=== PATIENT | female | born 2000 | race Caucasian/White ===

== ENCOUNTER 2022-01-07 11:40 | Emergency (ER) | payer OTHER ==
[2022-01-07 12:36] LABS: Urine Blood Trace-intact (Negative); Urine Glucose Negative (Negative); Urine Protein 1+ (Negative); Urine Specific Gravity >=1.030 (1.005-1.030)
[2022-01-07 12:37] LABS: Absolute Lymphocytes (CBC) 0.5 K/uL (0.7-4.9); Hematocrit 35.5 % (36.0-45.0); Lymphocytes % 6.4 % (15.3-44.8); MCV 72.2 fL (80-100); MPV 8.2 fL (7.6-11.3); RBC Red Blood Cell Count 4.91 M/uL (3.86-4.86)
[2022-01-07] MEDS ORDERED: NA CHLORIDE 0.9% 1,000 ML ONE (13:00)
[2022-01-07] MEDS ORDERED: ONDANSETRON 4 MG/2 ML VIAL ONE (13:00)
[2022-01-07 13:04] LABS: Albumin 3.8 g/dL (3.4-5.0); Bilirubin Total 0.9 mg/dL (0.2-1.0); Potassium 3.6 mmol/L (3.5-5.1)
--- NOTE | 2022-01-07 13:27 | RAD REPORT ---
EXAM DESCRIPTION: US - Abdomen Exam Limited - 01/07/2022 12:48 pm CLINICAL HISTORY: EPIGASTRIC PAIN COMPARISON: No comparisons FINDINGS: No gallstones, sludge or other abnormalities within the gallbladder lumen. There is no wal l thickening or pericholecystic fluid. No common duct stone or biliary tree dilatation identified. IMPRESSION: Normal gallbladder and biliary tree ultrasound.
[2022-01-07] MEDS ORDERED: METOCLOPRAMIDE 10 MG/2mL INJ ONE (14:54)
[2022-01-07] MEDS ORDERED: NA CHLORIDE 0.9% 250 ML ONE (14:54)
--- NOTE | 2022-01-07 15:44 | EDPHYS ---
Physician Documentation [facility] Name: Joanna Isbell Age: 21 yrs Sex: Female : 2000 Arrival Date: 01/07/2022 Time: 11:41 Bed DIS1 Private MD: ED Physician Oswald De Santiago HPI: 01/07 12:09 This 21 yrs old Female presents to ER via Unassigned with complaints of Headache, jmm Nausea/Vomiting, Fever. 12:09 The patient presents to the emergency department with nausea, vomiting, abdominal pain. jmm Onset: The symptoms/episode began/occurred acutely, last night. Possible causes: unknown. This is a 21-year-old female with no known chronic medical conditions of presents to the emergency department with complaints of nausea and vomiting beginning acutely last night. Patient states this occurred after she inhaled a chemical used for cleaning. Patient denies diarrhea but states having some intermittent abdominal pain. Also complains of chills and right upper back pain.. 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 - Social history:: Smoking status: Patient denies any tobacco usage or history of. Patient/guardian denies using alcohol. ROS: 12:09 Constitutional: Positive for body aches, chills. jmm 12:09 Abdomen/GI: Positive for abdominal pain. 12:09 Back: Positive for pain at rest. 12:09 All other systems are negative. Exam: 12:09 Constitutional: This is a well developed, well nourished patient who is awake, alert, jmm and in no acute distress. Head/Face: atraumatic. Eyes: EOMI, no conjunctival erythema appreciated ENT: Moist Mucus Membranes Neck: Trachea midline, Supple Chest/axilla: Normal chest wall appearance and motion. Cardiovascular: Regular rate and rhythm. No edema appreciated Respiratory: Normal respirations, no respiratory distress appreciated Abdomen/GI: Non distended Back: Normal ROM Skin: General appearance color normal MS/ Extremity: Moves all extremities, no obvious deformities appreciated, no edema noted to the lower extremities Neuro: Awake and alert Psych: Behavior is normal, Mood is normal, Patient is cooperative and pleasant Vital Signs: 12:18 BP 122 / 74; Pulse 101; Resp 18; Temp 98.4(TE); Pulse Ox 98% on R/A; Weight 72.57 kg; ld1 Height 5 ft. 4 in. (162.56 cm); Pain 0/10; 12:18 Body Mass Index 27.46 (72.57 kg, 162.56 cm) ld1 MDM: 12:08 Patient medically screened. [facility] 15:42 Data reviewed: vital signs, nurses notes. Counseling: I had a detailed discussion with [facility] the patient and/or guardian regarding: the historical points, exam findings, and any diagnostic results supporting the discharge/admit diagnosis, lab results, radiology results, the need for outpatient follow up, to return to the emergency department if symptoms worsen or persist or if there are any questions or concerns that arise at home. ED course: Labs and imaging studies are unremarkable. Patient states feeling much better after IV fluids. Patient was otherwise given strict return precautions. Patient understood and agrees plan of care.. 01/07 12:08 Order name: CBC with Diff; Complete Time: 12:44 [facility] 01/07 12:08 Order name: CMP; Complete Time: 13:14 [facility] 01/07 12:08 Order name: Lipase; Complete Time: 13:14 [facility] 01/07 12:09 Order name: SARS-COV-2 RT PCR (Document "Date of Onset" if Symptomatic); Complete Time: [facility] 13:31 01/07 12:09 Order name: Influenza Screen (a \\T\\ B); Complete Time: 13:00 [facility] 01/07 12:36 Order name: Urine Dipstick-Ancillary; Complete Time: 12:44 [facility] 01/07 12:08 Order name: IV Saline Lock; Complete Time: 12:23 [facility] 01/07 12:08 Order name: Labs collected and sent; Complete Time: 12:23 [facility] 01/07 12:25 Order name: US Abdomen Limited; Complete Time: 13:31 [facility] 01/07 12:08 Order name: Urine Dipstick-Ancillary (obtain specimen); Complete Time: 13:38 [facility] 01/07 12:08 Order name: Urine Test (obtain specimen); Complete Time: 13:38 jm Administered Medications: 12:58 Drug: NS 0.9% 1000 ml Route: IV; Rate: 1 bolus; Site: left forearm; iw 14:00 Follow up: IV Status: Completed infusion iw 12:58 Drug: Zofran (Ondansetron) 4 mg Route: IVP; Site: left forearm; iw 14:50 Drug: Reglan (metoCLOPramide) 10 mg Route: IVP; Site: left forearm; iw 15:30 Follow up: Response: No adverse reaction iw 14:50 Drug: NS 0.9% 250 ml Route: IV; Rate: bolus; Site: left forearm; iw 15:30 Follow up: IV Status: Completed infusion iw Disposition: 16:34 Co-signature as Attending Physician, Oswald De Santiago DO I was immediately available onsite ms3 in the emergency department for consultation in the care of the patient. Disposition Summary: 01/07/22 15:43 Discharge Ordered Location: Home [facility] Condition: Stable [facility] Diagnosis - Vomiting [facility] Followup: [facility] - With: Private Physician - When: 2 - 3 days - Reason: Recheck today's complaints, Continuance of care, Re-evaluation by your physician Discharge Instructions: - Discharge Summary Sheet [facility] - Vomiting, Adult [facility] Forms: - Medication Reconciliation Form [facility] - Thank You Letter [facility] - Antibiotic Education [facility] - Prescription Opioid Use [facility] - Family Work Release iw Prescriptions: - Pepcid 20 mg Oral Tablet - take 1 tablet by ORAL route every 12 hours for 10 days; 20 tablet; Refills: 0, [facility] Product Selection Permitted - promethazine 25 mg Oral Tablet - take 1 tablet by ORAL route every 6 hours As needed; 30 tablet; Refills: 0, [facility] Product Selection Permitted - dicyclomine 20 mg Oral Tablet - take 1 tablet by ORAL route 4 times per day; 20 tablet; Refills: 0, Product [facility] Selection Permitted Signatures: Dispatcher [employer] Wiley Mccann PA PA jmm Williams, Irene, RN RN iw Oswald De Santiago DO DO ms3 Wendy Aleman RN RN ld1
--- NOTE | 2022-01-07 15:44 | ER ---
Nurse's Notes [facility] Name: Joanna Isbell Age: 21 yrs Sex: Female : 2000 Arrival Date: 01/07/2022 Time: 11:41 Bed DIS1 Private MD: Diagnosis: Vomiting Presentation: 01/07 12:18 Chief complaint: Patient states: I was cleaning last night - spilled clorox all over ld1 the floor. After I began to develop a headache, dizziness, N/V. Coronavirus screen: At this time, the client does not indicate any symptoms associated with coronavirus-19. Ebola Screen: No symptoms or risks identified at this time. Initial Sepsis Screen: Does the patient meet any 2 criteria? No. Patient's initial sepsis screen is negative. Does the patient have a suspected source of infection? No. Patient's initial sepsis screen is negative. Risk Assessment: Do you want to hurt yourself or someone else? Patient reports no desire to harm self or others. Onset of symptoms was January 07, 2022. 12:18 Method Of Arrival: Ambulatory ld1 12:18 Acuity: JANET 3 ld1 Triage Assessment: 12:20 Headache History: Denies prior headaches. General: Appears in no apparent distress. ld1 comfortable, Behavior is calm, cooperative, appropriate for age. Pain: Denies pain. EENT: No signs and/or symptoms were reported regarding the EENT system. Neuro: Level of Consciousness is awake, alert, obeys commands, Oriented to person, place, time, situation. Cardiovascular: Capillary refill < 3 seconds Patient's skin is warm and dry. Respiratory: Airway is patent Respiratory effort is even, unlabored. GI: Abdomen is flat, non-distended. : No signs and/or symptoms were reported regarding the genitourinary system. Derm: No signs and/or symptoms reported regarding the dermatologic system. Musculoskeletal: No signs and/or symptoms reported regarding the musculoskeletal system. 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 - Social history:: Smoking status: Patient denies any tobacco usage or history of. Patient/guardian denies using alcohol. Screenin:06 Abuse screen: Denies threats or abuse. Denies injuries from another. Nutritional iw screening: No deficits noted. Tuberculosis screening: No symptoms or risk factors identified. Fall Risk IV access (20 points). Assessment: 15:06 Reassessment: Patient appears in no apparent distress at this time. Patient and/or iw family updated on plan of care and expected duration. Pain level reassessed. Patient is alert, oriented x 3, equal unlabored respirations, skin warm/dry/pink. Vital Signs: 12:18 BP 122 / 74; Pulse 101; Resp 18; Temp 98.4(TE); Pulse Ox 98% on R/A; Weight 72.57 kg; ld1 Height 5 ft. 4 in. (162.56 cm); Pain 0/10; 12:18 Body Mass Index 27.46 (72.57 kg, 162.56 cm) ld1 ED Course: 11:41 Patient arrived in ED. am2 11:41 Wiley Argueta PA is PHCP. m 11:41 Oswald De Santiago DO is Attending Physician. jmm 12:20 Triage completed. ld1 12:20 Arm band placed on right wrist. ld1 12:23 Influenza Screen (a \\T\\ B) Sent. ld1 12:23 SARS-COV-2 RT PCR (Document "Date of Onset" if Symptomatic) Sent. ld1 12:26 Inserted saline lock: 20 gauge in left forearm, using aseptic technique. Blood ld1 collected. 12:50 US Abdomen Limited In Process Unspecified. EDMS 12:58 Lesa Kramer, RN is Primary Nurse. iw 16:13 No provider procedures requiring assistance completed. IV discontinued, intact, iw bleeding controlled, No redness/swelling at site. Pressure dressing applied. Administered Medications: 12:58 Drug: NS 0.9% 1000 ml Route: IV; Rate: 1 bolus; Site: left forearm; iw 14:00 Follow up: IV Status: Completed infusion iw 12:58 Drug: Zofran (Ondansetron) 4 mg Route: IVP; Site: left forearm; iw 14:50 Drug: Reglan (metoCLOPramide) 10 mg Route: IVP; Site: left forearm; iw 15:30 Follow up: Response: No adverse reaction iw 14:50 Drug: NS 0.9% 250 ml Route: IV; Rate: bolus; Site: left forearm; iw 15:30 Follow up: IV Status: Completed infusion iw Outcome: 15:43 Discharge ordered by . jerry 16:13 Discharged to home ambulatory. iw 16:13 Condition: good 16:13 Discharge instructions given to patient, Instructed on discharge instructions, follow up and referral plans. Demonstrated understanding of instructions, follow-up care, medications. 16:13 Prescriptions given X 2. iw 16:14 Patient left the ED. iw Signatures: Dispatcher [employer] EDMS Wiley Argueta PA PA jmm Williams, Irene, RN RN iw Annie Buitrago am2 Wendy Aleman RN RN ld1
[2022-01-07 17:07] VITALS: BP 122/74; TEMP 98.4; O2SAT 98
== END 2022-01-07 16:14 | disposition home or self-care (01) ==
LOC: ER 11:40
DX: R11.10 Vomiting, unspecified (principal); R10.9 Unspecified abdominal pain; Z20.822 Contact with and (suspected) exposure to COVID-19
CPT/HCPCS: 96365; 96361; 85025; 36415; 81003; 83690; 80053; 87804 ×2; 76705; 96375; 99284; U0003; J2765; J7050; J7030; J2405